=== PATIENT | female | born 1965 | race Caucasian/White ===

== ENCOUNTER 2016-12-11 12:41 | Emergency (ER) | payer MEDICARE, OTHER ==
[~2016-12-11] VITALS: Ht 162.6 cm; Wt 96.8 kg
[~2016-12-11 12:41] MED LIST: BACL20TA PO; BUPR100T6 PO; FEXO180T85 PO; FLUT9.9S NS; GABA600T2 PO; Lidocaine TOPICAL; MULT-185 PO; OMPR20CCR PO; POTA99TA21 PO; PROM25TA14 PO; SOLI10TA PO; TRAZ150T72 PO; VITA-219 PO; WARF1TAB PO; WARF6TAB PO; [UNRECOGNIZED DRUG - CODE] PO
[2016-12-11 12:48] VITALS: BP 131/88; PULSE 83; RESP 16; O2SAT 96
[2016-12-11] MEDS ORDERED: METH-313 PO (12:58)
[2016-12-11] MEDS ORDERED: PROZ20 PO (12:58)
[2016-12-11] MEDS ORDERED: FLUO40CA12 PO (12:58)
[2016-12-11] MEDS ORDERED: HYDR-3740 PO (12:58)
[2016-12-11] MEDS ORDERED: GABA800T2 PO (12:58)
[2016-12-11] MEDS ORDERED: 0.9% Sodium Chloride 1,000 ML IV ONE (13:17)
[2016-12-11] MEDS ORDERED: Ondansetron 2 mg/mL 2 mL Inj IVPUSH ONE (13:20)
[2016-12-11 13:27] LABS: APPEARANCE,URINE HAZY (CLEAR,HAZY); COLOR,URINE STRAW (YELLOW); OCCULT BLOOD,URINE NEGATIVE (NEGATIVE); UROBILINOGEN,URINE NORMAL (NORMAL)
--- NOTE | 2016-12-11 13:30 | ED.REPORT ---
HPI-Abd Pain F 40 and Over Date of Service Dec 11, 2016 ED Provider: Papi Olvera PA-C Aramis is a 51-year-old female with a history of hysterectomy and bilateral oophorectomy who presents with chief complaint of right lower quadrant abdominal pain. She states that it began yesterday as a feeling of "warmth" progressed to throbbing and is now sharp and radiating to her lower back. She reports the pain is not controlled by her 10 mg Vicodin which he takes for lower back pain. She reports 2 day history of diarrhea for which she took Imodium last night. Denies vomiting but admits reduced appetite. She last ate a small amount of lunch at 11:00 today. She also reports a history of PE for which she takes Coumadin. She has been out of her Coumadin for 4 days. Denies fever, chills, malaise, urinary symptoms, vaginal bleeding or discharge. Nursing Notes Stated Complaint: RIGHT SIDE ABDOMINAL PAIN Chief Complaint: Female Abdominal Pain Nursing Notes Reviewed: Yes Allergies: Coded Allergies: Contrast Media (Verified Allergy, Severe, 02/19/15) Tetanus Vaccines and Toxoid (Verified Allergy, Severe, Anaphylaxis, ) erythromycin ethylsuccinate (Verified Allergy, Severe, 02/19/15) iodine (Verified Allergy, Severe, 02/19/15) sumatriptan (Verified Allergy, Severe, 02/19/15) cephalexin (Verified Allergy, Unknown, 02/19/15) lamotrigine (Verified Allergy, Unknown, 02/19/15) nalbuphine (Verified Allergy, Unknown, 02/19/15) phenazopyridine (Verified Allergy, Unknown, 02/19/15) Scheduled ([Lidocaine]) 1 PATCH PATCH 1 PATCH TOPICAL DAILY Fluoxetine (Prozac) 20 Mg Capsule 20 MG PO noon Fluoxetine (Prozac) 40 Mg Capsule 40 MG PO QAM Fluticasone Propionate (Flonase Allergy Relief) 9.9 Ml [place].susp 1 SPRAY NS DAILY Gabapentin (Gabapentin) 800 Mg Tablet 800 MG PO QID Omeprazole (Prilosec) 20 Mg Capcr 20 MG PO HS Sulfamethoxazole/Trimeth 800-160 mg (Bactrim DS) 1 Each Tablet 1 TABLET PO BID Trazodone (Trazodone) 150 Mg Tablet 225 MG PO HS Warfarin Sodium (Coumadin) 6 Mg Tablet 6 MG PO DAILY Scheduled PRN Hydrocodone-Acetaminophen 10-325 mg (Hydrocodone-Acetaminophen 10-325 mg) 1 Each Tablet 1 TABLET PO q4-6h PRN PRN For Pain no more than 6 tabs a day Methocarbamol (Robaxin-750) 750 Mg Tablet 750 MG PO q4-6h PRN PRN For Spasm upto 6 tabs daily Promethazine (Promethazine) 25 Mg Tablet 25 MG PO QID PRN PRN For Nausea General Time Seen by MD: 13:02 Chief Complaint Abdominal pain Sudden in Onset?: No Past Medical History Past Medical History PE DVT Past Surgical History bladder mesh removed in 10/2014 Smoking History Current Every Day Smoker Social History Alcohol Use: Denies alcohol use Drug Use: Denies drug use Other Social History: From out of town Ambulatory Status Independent Review of Systems General: Denies fever, chills, malaise. Gastrointestinal: Admits abdominal pain, diarrhea, nausea. Denies vomiting Genitourinary: Denies frequency, urgency, dysuria, hematuria. Denies vaginal bleeding/discharge Otherwise as noted in HPI. Physical Exam General: Well appearing, well developed, well nourished, no acute distress. Head: Atraumatic, normocephalic. Eyes: No scleral icterus or injection. No discharge. Vision grossly intact. ENT: Voice clear, hearing grossly intact. Respiratory: Regular rate and rhythm. Breath sounds present, clear to auscultation and equal bilaterally. No respiratory distress. No increased work of breathing, speaks in complete sentences. Cardiovascular: Regular rate and rhythm, without murmur, gallop or rub. No pedal edema. Gastrointestinal: Obese abdomen with moderate to severe right lower quadrant rebound tenderness. Bowel sounds hyperactive. Back: Normal to inspection, mild right CVA tenderness Skin: Warm and dry. Neurological: Grossly nonfocal. Psychological: Alert and oriented. Speech appropriate, linear and logical. Behavior appropriate. Vital Signs Vital Signs (First) Date Time Temp Pulse Resp B/P Pulse Ox O2 Delivery O2 Flow Rate FiO2 12/11/16 12:48 37.1 83 16 131/88 96 Room Air Initial VS: Vital signs normal Interpretation & Diagnostics Lab Results Interpretation Result Diagram: 12/11/16 1338 12/11/16 1338 Test 12/11/16 13:09 12/11/16 13:38 Urine Color Straw (YELLOW) Urine Appearance Hazy (CLEAR,HAZY) Urine pH 6.0 (5.0-8.0) Urine Specific [place] 1.010 (1.003-1.035) Urine Protein Negativemg/dL (NEG,TRACE) Urine Glucose (UA) Negativemg/dL (NEGATIVE) Urine Ketones Negativemg/dL (NEGATIVE) Urine Occult Blood Negative (NEGATIVE) Urine Nitrite Negative (NEGATIVE) Urine Bilirubin Negative (NEGATIVE) Urine Urobilinogen Normalmg/dL (NORMAL) Urine Leukocyte Esterase Moderate (NEGATIVE) Urine RBC 0-2/hpf (0-2) Urine WBC 6-10/hpf (0-5) Urine Epithelial Cells Occasional/hpf (NONE-MOD) Urine Crystals None seen (NONE SEEN) Urine Bacteria Few/hpf (NONE-FEW) Urine Hyaline Casts None/lpf (NONE) Urine Granular Casts None seen (NONE SEEN) Urine Waxy Casts None seen (NONE SEEN) Urine Red Blood Cell Casts None seen (NONE SEEN) Urine White Blood Cell Casts None seen (NONE SEEN) Urine Mucus None seen (None Seen) Urine Trichomonas None seen (NONE SEEN) Urine Yeast None (NONE SEEN) Urinalysis Comment None Urine Culture Reflexed Indicated White Blood Count 8.4th/mm3 (3.8-10.1) Red Blood Count 5.06mil/mm3 (3.90-5.20) Hemoglobin 13.7g/dL (12.0-15.6) Hematocrit 42.4% (35.0-46.0) Mean Corpuscular Volume 83.8fL (81-100) Mean Corpuscular Hemoglobin 27.1pg (27.0-35.0) Mean Corpuscular Hemoglobin Concent 32.3% (32.0-37.0) Red Cell Distribution Width 15.9% (12.3-15.4) Platelet Count 244bil/L (150-400) Neutrophils (%) (Auto) 52.9% (40-74) Lymphocytes (%) (Auto) 34.6% (14-46) Monocytes (%) (Auto) 6.8% (4-12) Eosinophils (%) (Auto) 4.8% (0-5) Basophils (%) (Auto) 0.7% (0-3) Prothrombin Time 10.1sec (8.1-12.5) Prothromb Time International Ratio 0.95ratio Sodium Level 140mEq/L (134-144) Potassium Level 4.3mEq/L (3.5-5.2) Chloride Level 102mEq/L (97-108) Carbon Dioxide Level 24mmol/L (18-29) Blood Urea Nitrogen 10mg/dL (6-24) Creatinine 0.63mg/dL (0.57-1.00) Estimat Glomerular Filtration Rate 142mL/min (>59) Glucose Level 106mg/dL (60-99) Calcium Level 9.5mg/dL (8.5-10.1) Total Bilirubin 0.2mg/dL (0.0-1.2) Aspartate Amino Transf (AST/SGOT) 14U/L (0-50) Alanine Aminotransferase (ALT/SGPT) 9U/L (0-32) Alkaline Phosphatase 75U/L (25-150) Total Protein 7.0g/dL (6.4-8.4) Albumin 4.0g/dL (3.4-5.0) Lipase 17U/L (13-60) Hold Saunders Top Tube Received (Received) CT Abd / Pelvis Interpretation PROCEDURE: CT ABDOMEN AND PELVIS WITHOUT CONTRAST ([id number]) INDICATIONS: right lower quadrant pain IMPRESSION: 1. No pericecal inflammatory changes to suggest appendicitis. 2. Left nephrolithiasis without evidence of obstructive uropathy. Interpretation / Wet Read by: Interpret - Radiologist Re-Eval/Medical Decision Med Decision/Clinical Course 51-year-old female with a history of kidney stones, hysterectomy and bilateral oophrectomy presents with right lower quadrant pain and rebound tenderness. Right CVA tenderness to percussion. A noncontrast CT is ordered because of a contrast allergy. This does not visualize the appendix well but there is no indication of free fluid or inflammation to suggest appendicitis. CBC and CMP are normal. Urinalysis reveals a urinary tract infection, does not suggest kidney stones. Appendicitis is not completely ruled out but seems unlikely at this point. I discussed case with Dr. villagomez who met with and examined the patient. He agrees. This patient has a history of PE and should be on Coumadin but has been out of her medication several days. The Bactrim I have prescribed her has an interaction with Coumadin. I have instructed her to discuss this with her primary care provider when she contacts her tomorrow. Patient is discharged with strict return precautions, instructions for primary care follow-up. Patient verbalized understanding and consented to the plan. Discharge & Departure Primary Impression: Abdominal pain Abdominal location: right lower quadrant Qualified Code: R10.31 - Right lower quadrant pain Additional Impression: Urinary tract infection Urinary tract infection type: acute cystitis Hematuria presence: without hematuria Qualified Code: N30.00 - Acute cystitis without hematuria Disposition: Home Discharge Condition All VS Reviewed: Yes Condition: Stable Patient Instructions: Acute Abdominal Pain (ED) Additional Instructions: Evaluation in the emergency department for right lower quadrant abdominal pain. CT scan is reassuring that this is unlikely to be appendicitis though it is not absolutely definitive. Blood tests show no sign of a serious infection or other dangerous condition. Urinalysis does reveal a urinary tract infection. I believe you are stable and safe to be discharged to home. I will write a prescription for Bactrim DS to be taken twice a day for 10 days to treat the urinary tract infection. This drug as a potential to interact with Coumadin. Please discuss this with your primary care provider. Treat the pain with your usual pain medication regimen. Contact your primary care provider tomorrow to get prescribed a refill of your Coumadin. Please arrange to be seen in the next few days to be sure this is progressing as expected. Return to emergency department for new or worsening symptoms including increasing pain or fever, which could indicate the development of appendicitis. Referrals: Roshni Parrish PA-C EDSupervising Provider for APC: Donald Villagomez MD Attending Statement Attending attestation: I saw this patient in conjunction with Papi Olvera PA-C. I agree with the workup, evaluation, treatment and disposition. Donald Villagomez MD copies to: Roshni Parrish PA-C, Seth PA-C Dec 11, 2016 13:30 Donald Villagomez MD Dec 12, 2016 01:03
[2016-12-11 13:45] LABS: BASOPHILS % (AUTO) 0.7 % (0-3); EOSINOPHILS % (AUTO) 4.8 % (0-5); MONOCYTES % (AUTO) 6.8 % (4-12); Mean Corpuscular Hemoglobin 27.1 pg (27.0-35.0); Mean Corpuscular Volume 83.8 fL (81-100); NEUTROPHILS % (AUTO) 52.9 % (40-74); Platelet Count 244 bil/L (150-400)
[2016-12-11 14:00] LABS: INR 0.95 ratio
--- NOTE | 2016-12-11 14:33 | DRSVH ---
PROCEDURE: CT ABDOMEN AND PELVIS WITHOUT CONTRAST ([id number]) INDICATIONS: right lower quadrant pain TECHNIQUE: Noncontrast 5 mm thick sections acquired from the diaphragms to the symphysis. 5 mm coronal and sagi ttal reformats were then performed. For radiation dose reduction, the following was used: automated exposure control, adjustment of mA and/or kV according to patient size. COMPARISON: None. FINDINGS: Image quality: Excellent. ABDOMEN: Lung bases: There is mild dependent atelectasis. Heart size is normal. Solid organs: Liver and spleen are normal in size. Gallbladder is surgically absent. Pancreas is n ormal in contours. No adrenal nodules. There is a small nonobstructing 2 mm renal stone in the supe rior pole of the left kidney. No hydronephrosis. Peritoneum and bowel: Unenhanced bowel loops demonstrate normal wall thickness and caliber. The carrie endix is not discretely visualized in the absence of intravenous and oral contrast . However, there are no pericecal inflammatory changes such as fat stranding or fluid to suggest appendicitis. No martha e fluid or air. Nodes and vessels: No retroperitoneal or mesenteric adenopathy by size criteria. Aorta and inferior vena cava are normal in caliber. Miscellaneous: No ventral hernias. PELVIS: Genitourinary: Bladder wall thickness is normal. Miscellaneous: No inguinal hernias or adenopathy. Bones: No suspicious bony lesions. No vertebral body compression fractures. IMPRESSION: 1. No pericecal inflammatory changes to suggest appendicitis. 2. Left nephrolithiasis without evidence of obstructive uropathy. Dictated by: Alexander Arana M.D. on 12/11/2016 at 14:19 Approved by: Alexander Arana M.D. on 12/11/2016 at 14:32
[2016-12-11] MEDS ORDERED: NITR100C PO (15:16)
[2016-12-11] MEDS ORDERED: SULF1TAB7 PO (16:44)
[2016-12-11 16:51] VITALS: BP 138/87; PULSE 60; RESP 16; O2SAT 98
== END 2016-12-11 16:52 | disposition home or self-care (01) ==
LOC: SED 12:41
DX: R10.31 Right lower quadrant pain (principal); N30.00 Acute cystitis without hematuria; F17.200 Nicotine dependence, unspecified, uncomplicated; Z79.01 Long term (current) use of anticoagulants; Z88.1 Allergy status to other antibiotic agents; Z88.8 Allergy status to other drugs, medicaments and biological substances; Z88.7 Allergy status to serum and vaccine; Z91.041 Radiographic dye allergy status
CPT/HCPCS: 36415; 74176; 80053; 81000; 83690; 85025; 85610; 87086; 87088; 96361; 96374; 96375; 99285; J1885; J2270; J2405; J7030

== ENCOUNTER 2017-01-12 13:16 | Emergency (ER) | payer MEDICARE ==
[~2017-01-12] VITALS: Ht 162.6 cm; Wt 98.3 kg
[~2017-01-12 13:16] MED LIST changes: -BACL20TA PO; -BUPR100T6 PO; -FEXO180T85 PO; +FLUO40CA12 PO; -GABA600T2 PO; +GABA800T2 PO; +HYDR-3740 PO; +METH-313 PO; -MULT-185 PO; -POTA99TA21 PO; +PROZ20 PO; -SOLI10TA PO; +SULF1TAB7 PO; -VITA-219 PO; -WARF1TAB PO; -[UNRECOGNIZED DRUG - CODE] PO
[2017-01-12 13:18] VITALS: BP 141/94; PULSE 101; RESP 16; O2SAT 94
--- NOTE | 2017-01-12 13:31 | ED.REPORT ---
HPI-General Illness Date of Service January 12, 2017 ED Provider: Osito Jean MD The patient is a 51 year old female w/ a hx of DVT, trigeminal neuralgia and PE who presents to the ED due to a migraine for the past 4 days. She states that this migraine is different from her usual migraines. Associated symptoms include nausea, abdominal pain, fever, neck pain, and photophobia. She denies cough, vomiting, runny nose, and sore throat. Her most recent INR check was 6 weeks ago. Pt is currently homeless and living in a women's residential. Nursing Notes Stated Complaint: MIGRAINE,RT SIDE PAIN Chief Complaint: General Complaint Nursing Notes Reviewed: Yes Allergies: Coded Allergies: Contrast Media (Verified Allergy, Severe, 02/19/15) Tetanus Vaccines and Toxoid (Verified Allergy, Severe, Anaphylaxis, ) erythromycin ethylsuccinate (Verified Allergy, Severe, 02/19/15) iodine (Verified Allergy, Severe, 02/19/15) sumatriptan (Verified Allergy, Severe, 02/19/15) cephalexin (Verified Allergy, Unknown, 02/19/15) lamotrigine (Verified Allergy, Unknown, 02/19/15) nalbuphine (Verified Allergy, Unknown, 02/19/15) phenazopyridine (Verified Allergy, Unknown, 02/19/15) Scheduled ([Lidocaine]) 1 PATCH PATCH 1 PATCH TOPICAL DAILY Fluoxetine (Prozac) 20 Mg Capsule 20 MG PO noon Fluoxetine (Prozac) 40 Mg Capsule 40 MG PO QAM Fluticasone Propionate (Flonase Allergy Relief) 9.9 Ml [place] [employer].susp 1 SPRAY NS DAILY Gabapentin (Gabapentin) 800 Mg Tablet 800 MG PO QID Omeprazole (Prilosec) 20 Mg Capcr 20 MG PO HS Sulfamethoxazole/Trimeth 800-160 mg (Bactrim DS) 1 Each Tablet 1 TABLET PO BID Trazodone (Trazodone) 150 Mg Tablet 225 MG PO HS Warfarin Sodium (Coumadin) 6 Mg Tablet 6 MG PO DAILY Scheduled PRN Hydrocodone-Acetaminophen 10-325 mg (Hydrocodone-Acetaminophen 10-325 mg) 1 Each Tablet 1 TABLET PO q4-6h PRN PRN For Pain no more than 6 tabs a day Methocarbamol (Robaxin-750) 750 Mg Tablet 750 MG PO q4-6h PRN PRN For Spasm upto 6 tabs daily Metoclopramide (Reglan) 5 Mg Tablet 5 MG PO QID PRN PRN For Nausea Promethazine (Promethazine) 25 Mg Tablet 25 MG PO QID PRN PRN For Nausea General Time Seen by MD: 13:30 Chief Complaint Headache Hx Obtained From: Patient Arrived By: Walk-in Sudden in Onset?: Yes Onset Occurred: 4 days ago Symptom Duration: Since onset Location: : Head Quality: Painful Radiation: : Does not radiate Severity: Current: Moderate Recent Healthcare: No recent doctor visit, No recent hospitalization Similar Sx Previous: No Past Medical History Past Medical History PE DVT Past Surgical History bladder mesh removed in 10/2014 Smoking History Current Every Day Smoker Social History Alcohol Use: Denies alcohol use Drug Use: Denies drug use Other Social History: From out of town Ambulatory Status Independent Review of Systems Full Review of Systems Constitutional: Reports: Fever Eyes: Reports: Photophobia Ears / Nose / Throat: Denies: Nasal congestion, Sore throat Respiratory: Denies: Non-productive cough GI: Reports: Abdominal pain, Denies: Vomiting Musculoskeletal: Reports: Neck pain Complete sys rev & neg: except as marked. Physical Exam Vital Signs Vital Signs Date Time Temp Pulse Resp B/P Pulse Ox O2 Delivery O2 Flow Rate FiO2 01/12/17 13:18 37.8 101 16 141/94 94 Room Air Initial VS: Reviewed Head / Eyes: Atraumatic, Normocephalic, PERRL ENT: Mucous membranes moist, Conjunctiva normal Neck: Supple, Non-tender Cardiovascular: Regular rate & rhythm, Heart sounds normal, Intact distal pulses Abdomen / GI: Soft, Non-tender, No guarding, No rebound, No distention Back: No CVA tenderness Extremities: Vascular intact, Neuro intact, No swelling, No tenderness Skin: Warm, Dry Respiratory / Chest: No rhonchi, No wheezing mild course breath sounds right lung base Interpretation & Diagnostics Lab Results Interpretation Result Diagram: 01/12/17 1345 01/12/17 1345 Test 01/12/17 13:45 White Blood Count 10.1th/mm3 (3.8-10.1) Red Blood Count 5.22mil/mm3 (3.90-5.20) Hemoglobin 14.1g/dL (12.0-15.6) Hematocrit 43.2% (35.0-46.0) Mean Corpuscular Volume 82.8fL (81-100) Mean Corpuscular Hemoglobin 27.0pg (27.0-35.0) Mean Corpuscular Hemoglobin Concent 32.6% (32.0-37.0) Red Cell Distribution Width 15.6% (12.3-15.4) Platelet Count 261bil/L (150-400) Neutrophils (%) (Auto) 67.0% (40-74) Lymphocytes (%) (Auto) 23.1% (14-46) Monocytes (%) (Auto) 5.3% (4-12) Eosinophils (%) (Auto) 4.0% (0-5) Basophils (%) (Auto) 0.5% (0-3) Prothrombin Time 17.4sec (8.1-12.5) Prothromb Time International Ratio 1.61ratio D-Dimer < 0.50mg/L FEU (<0.50) Sodium Level 139mEq/L (134-144) Potassium Level 3.6mEq/L (3.5-5.2) Chloride Level 101mEq/L (97-108) Carbon Dioxide Level 22mmol/L (18-29) Blood Urea Nitrogen 11mg/dL (6-24) Creatinine 0.54mg/dL (0.57-1.00) Estimat Glomerular Filtration Rate 170mL/min (>59) Glucose Level 138mg/dL (60-99) Calcium Level 9.9mg/dL (8.5-10.1) Total Bilirubin 0.2mg/dL (0.0-1.2) Aspartate Amino Transf (AST/SGOT) 13U/L (0-50) Alanine Aminotransferase (ALT/SGPT) 13U/L (0-32) Alkaline Phosphatase 99U/L (25-150) Total Protein 7.5g/dL (6.4-8.4) Albumin 4.2g/dL (3.4-5.0) Hold Saunders Top Tube Received (Received) X-Ray Chest Interpretation Chest Xray Interpretation: IMPRESSION: No acute pulmonary process. Dictated by: Neela Mendoza M.D. on 01/12/2017 at 14:13 Approved by: Neela Mendoza M.D. on 01/12/2017 at 14:13 View: Portable Interpretation / Wet Read by: Interpret - Radiologist Re-Eval/Medical Decision Med Decision/Clinical Course 51-year-old female presenting complaining of headache times several days. She reports this is typical of her typical migraine headaches. She also has a slight fever here. She has no new neck pain. Her Brudzinski's and Kernig's are negative. Also complaining of right chest pain. She has history of PEs. Her d-dimer is negative and her troponins are negative. EKG no signs ischemia. Patient felt better after interventions. Discharged home with return precautions regarding sun symptoms meningitis, fevers, shortness breath, any other new or worsening symptoms. Time of Eval: 14:41 Patient Status: Condition improved Re-Evaluation/Progress Note: Pt rechecked. Her pain and symptoms have improved. She feels better and requests one of her Vicodin. Plan for discharge. Counseled Regarding: Diagnosis, Lab results, Need for follow-up, When/why to return to ED Discharge & Departure Primary Impression: Viral syndrome Additional Impression: Migraine headache Migraine type: unspecified Status migrainosus presence: without status migrainosus Intractability: not intractable Qualified Code: G43.909 - Migraine, unspecified, not intractable, without status migrainosus Disposition: Home Discharge Condition All VS Reviewed: Yes Condition: Stable Additional Instructions: Thank you for entrusting us with your care today. Your lab work and imaging are normal. Your symptoms are likely due to a virus. Follow up with your primary care physician as needed. Return to the Emergency Department for any new or worsening symptoms including worsening head pain, neck pain, shortness of breath , visual changes, fever, difficulties speaking or swallowing. I hope you feel better soon, enjoy the sunshine! Referrals: Roshni Parrish PA-C (PCP) Scribe Attestation Portion of this note were transcribed by Bibi Lee. I, Dr. Jean, personally performed the history, physical exam, and medical decision-making: I reviewed and confirmed the accuracy for the information in the transcribed note. Signed by: roberto Hansen, 01/12/17 1500 copies to: Roshni Parrish PA-C, Ben M MD January 12, 2017 13:31 Bibi Lee January 12, 2017 13:38
[2017-01-12] MEDS ORDERED: 0.9% Sodium Chloride 1,000 ML IV ONE (13:35)
[2017-01-12] MEDS ORDERED: Ondansetron 2 mg/mL 2 mL Inj IVPUSH ONE (13:35)
--- NOTE | 2017-01-12 14:14 | DRSVH ---
PROCEDURE: X-RAY CHEST ONE VIEW, PORTABLE ([id number]) INDICATIONS: R chest pain TECHNIQUE: One view of the chest was acquired. COMPARISON: [facility], , CHEST 1VW (PORTABLE), 02/19/2015, 19:15. FINDINGS: Surgical changes and devices: None. Lungs and pleura: No pleural effusions or pneumothorax. Lungs are clear. Mediastinum: Mediastinal contours appear normal. Heart size is normal. Bones and chest wall: No suspicious bony lesions. Overlying soft tissues appear unremarkable. IMPRESSION: No acute pulmonary process. Dictated by: Neela Mendoza M.D. on 01/12/2017 at 14:13 Approved by: Neela Mendoza M.D. on 01/12/2017 at 14:13
[2017-01-12 14:15] LABS: BASOPHILS % (AUTO) 0.5 % (0-3); MONOCYTES % (AUTO) 5.3 % (4-12); Mean Corpuscular Volume 82.8 fL (81-100); Platelet Count 261 bil/L (150-400)
[2017-01-12 14:25] LABS: D-Dimer < 0.50 mg/L FEU (<0.50); INR 1.61 ratio
[2017-01-12] MEDS ORDERED: HYDROcodone-APAP 5-325 mg Tablet PO ONE (14:40)
[2017-01-12] MEDS ORDERED: METO5TAB78 PO (14:40)
[2017-01-12] MEDS ORDERED: MetoCLOpramide 5 mg/mL 2 mL Inj IVPUSH ONE (14:50)
[2017-01-12 15:26] VITALS: BP 123/80; PULSE 90
== END 2017-01-12 15:25 | disposition home or self-care (01) ==
LOC: SED 13:16
DX: B34.9 Viral infection, unspecified (principal); G43.909 Migraine, unspecified, not intractable, without status migrainosus; F17.200 Nicotine dependence, unspecified, uncomplicated; Z79.01 Long term (current) use of anticoagulants; Z88.1 Allergy status to other antibiotic agents; Z88.7 Allergy status to serum and vaccine; Z88.8 Allergy status to other drugs, medicaments and biological substances; Z91.041 Radiographic dye allergy status
CPT/HCPCS: 36415; 71010; 80053; 85025; 85378; 85610; 96361; 96374; 96375; 99285; J1885; J2405; J2765; J7030

== ENCOUNTER 2017-02-26 16:23 | Emergency (ER) | payer MEDICARE ==
[~2017-02-26] VITALS: Ht 162.6 cm; Wt 90.9 kg
[~2017-02-26 16:23] MED LIST changes: +METO5TAB78 PO
[2017-02-26 16:29] VITALS: BP 96/61; PULSE 83; RESP 16; O2SAT 95
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
[2017-02-26] MEDS ORDERED: TRAZ-118 PO (17:10)
[2017-02-26] MEDS ORDERED: cefTRIAXone Inj 250 MG, Lidocaine PF 1% Inj 0.9 ML in Syringe 1 EACH IM ONE (18:15)
[2017-02-26] MEDS ORDERED: Ondansetron 8 mg ODT Tablet PO ONE (18:15)
[2017-02-26 18:48] VITALS: BP 93/60; PULSE 72; RESP 16; O2SAT 96
[2017-02-26 18:48] LABS: COLOR,URINE DARK YELLOW (YELLOW)
[2017-02-26 18:49] LABS: APPEARANCE,URINE CLEAR (CLEAR,HAZY); OCCULT BLOOD,URINE SMALL (NEGATIVE); PH,URINE 5.5 (5.0-8.0); UROBILINOGEN,URINE NORMAL (NORMAL)
== END 2017-02-26 18:51 | disposition home or self-care (01) ==
LOC: MERGE 16:23 → SED 16:23
DX: B37.3 Candidiasis of vulva and vagina (principal); N30.01 Acute cystitis with hematuria; F17.200 Nicotine dependence, unspecified, uncomplicated; Z79.01 Long term (current) use of anticoagulants; Z59.0 Homelessness; Z88.1 Allergy status to other antibiotic agents; Z88.5 Allergy status to narcotic agent; Z88.7 Allergy status to serum and vaccine; Z88.8 Allergy status to other drugs, medicaments and biological substances; Z91.041 Radiographic dye allergy status; Z90.710 Acquired absence of both cervix and uterus